=== PATIENT | male | born 2000 | race Caucasian/White ===

== ENCOUNTER 2023-06-21 23:19 | Emergency (ER) | payer MEDICAID ==
[2023-06-21 23:32] VITALS: O2SAT 100
[2023-06-21 23:48] LABS: BASOPHILS # (AUTO) 0.1 10^3/uL (0.0-0.1); BASOPHILS % (AUTO) 0.8 %; EOSINOPHILS # (AUTO) 0.5 10^3/uL (0.0-0.7); EOSINOPHILS % (AUTO) 6.3 %; HCT - HEMATOCRIT 43.8 % (42.0-52.0); HGB - HEMOGLOBIN 14.4 g/dL (14.0-18.0); LYMPHOCYTES % (AUTO) 38.1 %; MEAN CORPUSCULAR HEMOGLOBIN 30.3 pg (27.0-31.0); MEAN CORPUSCULAR HGB CONC 32.9 g/dL (32.0-36.0); MEAN PLATELET VOLUME 9.7 fL (7.4-11.4); MONOCYTES # (AUTO) 0.7 10^3/uL (0.0-1.0); MONOCYTES % (AUTO) 8.2 %; NEUTROPHILS # (AUTO) 3.7 10^3/uL (1.5-6.6); NEUTROPHILS % (AUTO) 46.5 %; PLT - PLATELET COUNT 270 10^3/uL (130-450); RED BLOOD COUNT 4.76 10^6/uL (4.70-6.10); RED CELL DISTRIBUTION WIDTH 13.1 % (12.0-15.0)
[2023-06-21 23:49] VITALS: BP 134/75
[2023-06-22 00:03] LABS: ALBUMIN 4.6 g/dL (3.2-5.5); ALBUMIN/GLOBULIN RATIO 2.6 (1.0-2.2); BILIRUBIN,TOTAL 0.4 mg/dL (0.2-1.0); CALCIUM 9.1 mg/dL (8.5-10.3); CREATININE 0.8 mg/dL (0.6-1.3); POTASSIUM 3.6 mmol/L (3.5-4.5); TOTAL PROTEIN 6.4 g/dL (6.4-8.9)
[2023-06-22 00:06] LABS: TROPONIN I HIGH SENSITIVITY 2.3 ng/L (2.3-19.7)
--- NOTE | 2023-06-22 00:46 | ED Physician Documentation ---
PD HPI CHEST PAIN - Stated complaint Stated Complaint: CHEST PX - Chief complaint Chief Complaint: Cardiac - History obtained from History obtained from: Patient - Additional information Additional information: Patient is a 23-year-old male presenting for evaluation of left-sided chest pain that has been present all day and feels like a sharp poking sensation. Nothing makes it better or worse. He denies feeling short of air. No recent fever, cough or congestion. No vomiting or diarrhea. Has not taken anything for this. Patient arrives to the emergency department with 7 solo cups, 6 of which are empty and stacked together and 1 with an shauna-colored liquid. When asked what is in the cup patient is very evasive about answering questions. He hesitantly denies drug or alcohol use. Review of Systems Constitutional: denies: Fever Cardiac: reports: Chest pain / pressure Respiratory: denies: Dyspnea GI: denies: Abdominal Pain, Vomiting PD PAST MEDICAL HISTORY - Past Medical History Past Medical History: No - Past Surgical History Past Surgical History: No - Allergies Allergies/Adverse Reactions: Allergies Allergy/AdvReac Type Severity Reaction Status Date / Time No Known Drug Allergies Allergy Verified 06/21/23 23:31 - Social History Does the pt smoke?: Yes Smoking Status: Current every day smoker Does the pt drink ETOH?: Yes - Immunizations Immunizations are current?: Yes PD ED PE NORMAL - General General: Alert and oriented X 3, No acute distress, Well developed/nourished - HEENT HEENT: Atraumatic, Moist mucous membranes, Pharynx benign - Neck Neck: Supple, no meningeal sign - Cardiac Cardiac: RRR, Strong equal pulses - Respiratory Respiratory: No respiratory distress, Clear bilaterally - Abdomen Abdomen: Soft, Non tender - Derm Derm: Warm and dry - Neuro Neuro: Normal speech Results - Vitals Vitals: Vital Signs - 24 hr 06/21/23 06/21/23 06/22/23 23:29 23:44 00:50 Temperature 37 C 36.6 C 37 C Heart Rate 78 82 83 Respiratory 20 17 20 Rate Blood Pressure 129/72 134/75 H 134/75 H O2 Saturation 100 100 100 Oxygen O2 Source Room air - EKG (time done) 7997 EKG releavant findings:: EKG personally interpreted by author of this note. Relevant findings are: Rate 80, normal sinus rhythm, no STEMI, no ST depressions - Labs Labs: Laboratory Tests 06/21/23 06/21/23 23:40 23:40 WBC 8.0 RBC 4.76 Hgb 14.4 Hct 43.8 MCV 92.0 MCH 30.3 MCHC 32.9 RDW 13.1 Plt Count 270 MPV 9.7 Neut # (Auto) 3.7 Lymph # (Auto) 3.0 [place] # (Auto) 0.7 Eos # (Auto) 0.5 Baso # (Auto) 0.1 Absolute Nucleated RBC 0.00 Nucleated RBC % 0.0 Sodium 141 Potassium 3.6 Chloride 105 Carbon Dioxide 26 Anion Gap 10.0 BUN 18 Creatinine 0.8 Estimated GFR (MDRD) 119 Glucose 112 H Calcium 9.1 Total Bilirubin 0.4 AST 14 ALT 11 Alkaline Phosphatase 79 Troponin I High Sens 2.3 Total Protein 6.4 Albumin 4.6 Globulin 1.8 L Albumin/Globulin Ratio 2.6 H Lipase 27 PD Medical Decision Making - ED course Complexity details: reviewed results, re-evaluated patient, d/w patient ED course: Patient is a 23-year-old male presenting for evaluation of chest pain that has been present all day long. Nothing making it better or worse. There is no radiation to the pain. PERC negative. No known risk factors for coronary artery disease. CBC, chemistries, troponin and chest x-ray were obtained. No significant findings including unremarkable chest x-ray. EKG is nonischemic.At this time I do not see signs of an emergent condition as an explanation for the patient's symptoms and have encouraged close outpatient follow-up if symptoms persist. Patient is advised on concerning symptoms to return for. Departure - Departure Disposition: 01 Home, Self Care Clinical Impression: Chest pain Condition: Stable Instructions: ED Chest Pain Atypical Unkn Cause Comments: Your lab testing tonight is reassuring and I do not see signs of a heart attack or any irregular rhythms with your heart. You can try ibuprofen or Tylenol for your symptoms to see if this helps. I would recommend close follow-up with a primary care provider if your symptoms are not improving. Return to the emergency department if your symptoms are getting worse. Forms: PCP List Discharge Date/Time: 06/22/23 00:51
--- NOTE | 2023-06-22 02:08 | XRAY Report ---
PROCEDURE: Chest 1 View X-Ray INDICATIONS: Chest pain TECHNIQUE: One view of the chest was acquired. COMPARISON: None. FINDINGS: Surgical changes and devices: None. Lungs and pleura: No pleural effusions or pneumothorax. Lungs are clear. Mediastinum: Mediastinal contours appear normal. Heart size is normal. Bones and chest wall: No suspicious bony lesions. Overlying soft tissues appear unremarkable. IMPRESSION: No acute cardiopulmonary process. Reviewed by: Francesco Flores MD on 06/22/2023 2:07 AM [facility] Approved by: Francesco Flores MD on 06/22/2023 2:07 AM [facility] Station ID: [id number]
== END 2023-06-22 00:51 | disposition home or self-care (01) ==
LOC: ED 23:19
DX: R07.9 Chest pain, unspecified (principal); F17.200 Nicotine dependence, unspecified, uncomplicated
CPT/HCPCS: 36415; 80053; 83690; 84484; 85025; 93005; 99283; 99284

== ENCOUNTER 2023-06-22 03:46 | Outpatient (CLI) | payer MEDICAID | END 2023-06-22 23:59 | disposition critical access hospital (66) | LOC: EMS 03:46 | DX: Z04.6 Encounter for general psychiatric examination, requested by authority (principal); F10.90 Alcohol use, unspecified, uncomplicated | CPT/HCPCS: A0425; A0429; A0999 ==

== ENCOUNTER 2023-06-22 03:53 | Emergency (ER) | payer MEDICAID ==
--- NOTE | 2023-06-22 04:09 | ED Physician Documentation ---
PD HPI MHE - Stated complaint Stated Complaint: WANTS DETOX - Chief complaint Chief Complaint: MHE - History obtained from History obtained from: Patient, EMS, Police - Additional information Additional information: Patient is a 23-year-old male presenting to the emergency department for requesting detox from alcohol. Patient was seen earlier this evening in the emergency department for chest pain. At that time he had a negative work-up including EKG and troponin without signs of acute ischemia. He did have several solo cups with him that were empty and 1 with some liquid in it that he would n ot identify. Per police and EMS he was found outside running around naked near [facility] and drinking from 1 of those solo cups.When I asked the patient how much he drinks he is still very evasive with questions, often smirking and Giving vague answers. The patient is minimally cooperative with history taking. When I ask again about his chest pain he states that it is emotional pain. He denies SI or HI. He denies drug use. He has a monitoring device on his right ankle. Review of Systems Constitutional: denies: Fever Respiratory: denies: Dyspnea GI: denies: Vomiting Psychiatric: denies: Suicidal, Homicidal PD PAST MEDICAL HISTORY - Past Surgical History Past Surgical History: No - Allergies Allergies/Adverse Reactions: Allergies Allergy/AdvReac Type Severity Reaction Status Date / Time No Known Drug Allergies Allergy Verified 06/21/23 23:31 - Social History Does the pt smoke?: Yes Smoking Status: Current every day smoker Does the pt drink ETOH?: Yes - Immunizations Immunizations are current?: Yes PD ED PE NORMAL - General General: Alert and oriented X 3, No acute distress, Well developed/nourished - HEENT HEENT: Atraumatic, PERRL, Moist mucous membranes, Pharynx benign - Neck Neck: Supple, no meningeal sign - Cardiac Cardiac: RRR - Respiratory Respiratory: No respiratory distress, Clear bilaterally - Abdomen Abdomen: Soft, Non tender, Non distended - Derm Derm: Warm and dry - Neuro Neuro: Normal speech Results - Vitals Vitals: Vital Signs - 24 hr 06/22/23 06/22/23 06/22/23 03:57 04:02 06:33 Temperature 37 C 36.9 C 36.8 C Heart Rate 86 84 79 Respiratory 17 20 20 Rate Blood Pressure 134/78 H 119/69 127/74 O2 Saturation 100 94 100 Oxygen O2 Source Room air - Labs Labs: Laboratory Tests 06/22/23 06/22/23 06/22/23 04:15 04:15 05:00 WBC 7.9 RBC 4.59 L Hgb 13.7 L Hct 42.7 MCV 93.0 MCH 29.8 MCHC 32.1 RDW 13.1 Plt Count 277 MPV 9.9 Neut # (Auto) 2.9 Lymph # (Auto) 3.8 H Hale # (Auto) 0.5 Eos # (Auto) 0.6 Baso # (Auto) 0.1 Absolute Nucleated RBC 0.00 Nucleated RBC % 0.0 Sodium 142 Potassium 3.9 Chloride 105 Carbon Dioxide 29 Anion Gap 8.0 BUN 19 Creatinine 1.0 Estimated GFR (MDRD) 92 Glucose 94 Calcium 9.0 Magnesium 1.9 Total Bilirubin 0.4 AST 13 ALT 11 Alkaline Phosphatase 74 Total Creatine Kinase 82 Total Protein 6.1 L Albumin 4.4 Globulin 1.7 L Albumin/Globulin Ratio 2.6 H Lipase 30 TSH 2.14 Urine Color YELLOW Urine Clarity CLEAR Urine pH 6.0 Ur Specific [place] >=1.030 H Urine Protein TRACE Urine Glucose (UA) NEGATIVE Urine Ketones NEGATIVE Urine Occult Blood NEGATIVE Urine Nitrite NEGATIVE Urine Bilirubin NEGATIVE Urine Urobilinogen 0.2 (NORMAL) Ur Leukocyte Esterase NEGATIVE Ur Microscopic Review NOT INDICATED Urine Culture Comments NOT INDICATED Salicylates < 1.5 Urine Opiates Screen NEGATIVE Ur Oxycodone Screen NEGATIVE Urine Methadone Screen NEGATIVE Ur Propoxyphene Screen NEGATIVE Acetaminophen < 0.1 Ur Barbiturates Screen NEGATIVE Ur Tricyclics Screen NEGATIVE Ur Phencyclidine Scrn NEGATIVE Ur Amphetamine Screen NEGATIVE U Methamphetamines Scrn NEGATIVE U Benzodiazepines Scrn NEGATIVE Urine Cocaine Screen NEGATIVE U Cannabinoids Screen NEGATIVE Ethyl Alcohol 134.2 PD Medical Decision Making - ED course Complexity details: reviewed results, re-evaluated patient, d/w patient ED course: Patient is a 23-year-old male presenting for requesting detox for alcohol. He is not forthcoming with how much he has been drinking or what he has been drinking recently. He was actually seen in our emergency department earlier tonight for chest pain and now when asked about it states it is emotional pain. He denies feeling suicidal. He denies drug use. He was brought in voluntarily by EMS. Although evasive with answering questions he is mostly cooperative. Mental health screening labs were obtained and reviewed and without any significant findings. Alcohol level is 134 but patient is speaking clearly and ambulating with a steady gait on his own. Patient has been cleared from a medical standpoint and spoke to [facility]. Social work consult has also been placed. Patient to be signed out to oncoming provider at shift change. 0525 - Patient's labs reviewed without significant findings. He has been medically cleared. EtOH level is 134. Patient is ambulatory here with clear speech. I did have another conversation with the patient to try and elicit more information and he states that he is from the [facility] [place] He states that he went to detox a year ago and had been doing well up until recent weeks. He denies feeling suicidal. He does not give an answer as to why he has been drinking again. He is interested in getting help however. He does not appear to be having any withdrawal symptoms currently. 0640 - Patient has spoken to [facility] and we have faxed over information for them. We are waiting to see if they have availability for the patient. A social work consult has also been placed. Patient may also just benefit from outpatient resources. He again does not appear to be having withdrawal symptoms at this time. Departure - Departure Clinical Impression: Alcohol abuse Condition: Stable Forms: PCP List
[2023-06-22 04:24] LABS: BASOPHILS # (AUTO) 0.1 10^3/uL (0.0-0.1); BASOPHILS % (AUTO) 0.8 %; EOSINOPHILS # (AUTO) 0.6 10^3/uL (0.0-0.7); HCT - HEMATOCRIT 42.7 % (42.0-52.0); HGB - HEMOGLOBIN 13.7 g/dL (14.0-18.0); LYMPHOCYTES # (AUTO) 3.8 10^3/uL (1.5-3.5); LYMPHOCYTES % (AUTO) 48.5 %; MEAN CORPUSCULAR HEMOGLOBIN 29.8 pg (27.0-31.0); MEAN CORPUSCULAR HGB CONC 32.1 g/dL (32.0-36.0); MEAN PLATELET VOLUME 9.9 fL (7.4-11.4); MONOCYTES # (AUTO) 0.5 10^3/uL (0.0-1.0); MONOCYTES % (AUTO) 6.7 %; NEUTROPHILS # (AUTO) 2.9 10^3/uL (1.5-6.6); NEUTROPHILS % (AUTO) 36.9 %; PLT - PLATELET COUNT 277 10^3/uL (130-450); RED BLOOD COUNT 4.59 10^6/uL (4.70-6.10); RED CELL DISTRIBUTION WIDTH 13.1 % (12.0-15.0); WHITE BLOOD COUNT 7.9 x10^3/uL (4.8-10.8)
[2023-06-22 04:42] LABS: ALBUMIN 4.4 g/dL (3.2-5.5); ALBUMIN/GLOBULIN RATIO 2.6 (1.0-2.2); ALKALINE PHOSPHATASE 74 IU/L (42-121); ALT ALANINE AMINOTRANSFERASE 11 IU/L (10-60); AST ASPARTATE AMINOTRANSFERASE 13 IU/L (10-42); BILIRUBIN,TOTAL 0.4 mg/dL (0.2-1.0); BUN - BLOOD UREA NITROGEN 19 mg/dL (6-20); CARBON DIOXIDE - CO2 29 mmol/L (21-32); CHLORIDE 105 mmol/L (101-111); CK- CREATINE KINASE 82 IU/L (30-223); ETOH - ETHANOL 134.2 mg/dL; GFR - MDRD 92 (>89); GLUCOSE 94 mg/dL (74-104); LIPASE 30 U/L (11-82); MAGNESIUM 1.9 mg/dL (1.7-2.3); POTASSIUM 3.9 mmol/L (3.5-4.5); SODIUM 142 mmol/L (135-145); TOTAL PROTEIN 6.1 g/dL (6.4-8.9)
[2023-06-22 04:44] LABS: SALICYLATE < 1.5 mg/dL
[2023-06-22 04:45] LABS: ACETAMINOPHEN < 0.1 ug/mL
[2023-06-22 04:52] LABS: THYROID STIMULATING HORMONE 2.14 uIU/mL (0.34-5.60)
[2023-06-22 05:33] LABS: BILIRUBIN,URINE NEGATIVE (NEGATIVE); GLUCOSE, URINE (UA) NEGATIVE (NEGATIVE); KETONES,URINE (UA) NEGATIVE (NEGATIVE); LEUKOCYTE ESTERASE, URINE NEGATIVE (NEGATIVE); MUDS CUTOFF CONCENTRATIONS CUTOFF CONC BELOW:; NITRITE,URINE NEGATIVE (NEGATIVE); OCCULT BLOOD,URINE NEGATIVE (NEGATIVE); PROTEIN,URINE TRACE mg/dL (NEGATIVE); UROBILINOGEN,URINE 0.2 (NORMAL) E.U./dL (NORMAL)
[2023-06-22 05:35] LABS: CLARITY,URINE CLEAR (CLEAR)
[2023-06-22 05:44] LABS: AMPHETAMINE SCREEN,URINE NEGATIVE (NEGATIVE); BARBITURATE SCREEN,UR NEGATIVE (NEGATIVE); BENZODIAZEPINES SCREEN, URINE NEGATIVE (NEGATIVE); COCAINE SCREEN URINE NEGATIVE (NEGATIVE); METHADONE SCREEN, URINE NEGATIVE (NEGATIVE); METHAMPHETAMINES SCREEN, URINE NEGATIVE (NEGATIVE); OPIATE SCREEN, URINE NEGATIVE (NEGATIVE); OXYCODONE SCREEN, URINE NEGATIVE (NEGATIVE); PROPOXYPHENE SCREEN, URINE NEGATIVE (NEGATIVE); THC CANNABINOID SCREEN, URINE NEGATIVE (NEGATIVE); TRICYCLIC ANTIDEPRESSANT,URINE NEGATIVE (NEGATIVE)
[2023-06-22 06:36] VITALS: O2SAT 100
[2023-06-22] MEDS ORDERED: LORazepam 1 MG TABLET PO STA (08:06)
[2023-06-22] MEDS ORDERED: PHENobarbitaL 32.4 MG TABLET PO STA (08:06)
--- NOTE | 2023-06-22 08:09 | ED Physician Documentation ---
ED Addendum - Addendum Addendum: 06/22/23 08:07 The patient was conversant and in no apparent distress. Asked if he has started to feel some withdrawal symptoms. He states he was feeling slightly shaky. Heart rate seemed mildly elevated otherwise no tremor noted. He is not nauseous. However will be easier to preempt the withdrawal symptoms and I would anticipate his blood alcohol level being at that point now. I will start with some oral medication of phenobarbital and lorazepam. He did talk with the 2 and they are excepting him but he cannot arrive until 1. He can either remain here with medic occasions and such or discharge. I left to the patient. It would be 4 hours from now that he would leave here to arrive at that facility. He will need to provide his own ride. You look at friends as a possibility although the bus route will go right by there. Social work can assist.
[2023-06-22 11:58] VITALS: BP 123/76
== END 2023-06-22 11:54 | disposition home or self-care (01) ==
LOC: EDUNIT# → ED 03:53
DX: F10.10 Alcohol abuse, uncomplicated (principal); Y90.6 Blood alcohol level of 120-199 mg/100 ml; F17.200 Nicotine dependence, unspecified, uncomplicated
CPT/HCPCS: 36415; 80053; 80306; 80307; 80320; 80329; 81003; 82550; 83690; 83735; 84443; 85025; 99283; A9270; J8499; 81001; 87086

== ENCOUNTER 2023-06-24 16:08 | Emergency (ER) | payer MEDICAID ==
[2023-06-24 16:37] VITALS: BP 135/71; O2SAT 100
== END 2023-06-24 17:10 | disposition left against medical advice (07) ==
LOC: ED 16:08
DX: Z53.21 Procedure and treatment not carried out due to patient leaving prior to being seen by health care provider (principal)

== ENCOUNTER 2023-06-24 20:24 | Emergency (ER) | payer MEDICAID ==
[2023-06-24 20:35] VITALS: BP 130/88; O2SAT 98
--- NOTE | 2023-06-24 20:46 | ED Physician Documentation ---
History of Present Illness - Stated complaint Stated Complaint: MHE - Chief complaint Chief Complaint: MHE - History obtained from History obtained from: Patient - Additonal information Additional information: 23yM with 4 ED visits in the past 2 days p/w full body aches, hiccups and alcohol use. patient is poor historian but states he may have schizophrenia. denies SI/HI but states he sometimes may have hallucinations. unable to state his medications or if he is prescribed anything. states he did not go to [facility] after being referred there on previous ED visit, but that he is aware of that resource. Review of Systems Constitutional: denies: Fever Cardiac: denies: Chest pain / pressure Respiratory: denies: Dyspnea GI: denies: Abdominal Pain, Vomiting, Diarrhea Musculoskeletal: reports: Other (body aches) PD PAST MEDICAL HISTORY - Past Medical History Cardiovascular: None Respiratory: None Neuro: None Endocrine/Autoimmune: None GI: None : None HEENT: None Psych: Anxiety, Schizophrenia Musculoskeletal: None Derm: None - Past Surgical History Past Surgical History: No - Present Medications Home Medications: Ambulatory Orders Medication Instructions Recorded Confirmed Famotidine [Pepcid] 20 mg PO BID 06/22/23 06/22/23 Naltrexone HCl 50 mg PO DAILY 06/22/23 06/22/23 - Allergies Allergies/Adverse Reactions: Allergies Allergy/AdvReac Type Severity Reaction Status Date / Time No Known Drug Allergies Allergy Verified 06/24/23 20:27 - Social History Does the pt smoke?: Yes Smoking Status: Current every day smoker Does the pt drink ETOH?: Yes - Immunizations Immunizations are current?: Yes PD ED PE NORMAL - Vitals Vital signs reviewed: Yes - General General: Alert and oriented X 3, No acute distress, Well developed/nourished - HEENT HEENT: Atraumatic, PERRL, EOMI, Moist mucous membranes, Pharynx benign - Neck Neck: Supple, no meningeal sign - Derm Derm: Normal color, Warm and dry - Neuro Neuro: Alert and oriented X 3, No motor deficit, No sensory deficit - Psych Psych: Other (diminished eye contact) Results - Vitals Vitals: Vital Signs - 24 hr 06/24/23 20:27 Temperature 36.5 C Heart Rate 90 Respiratory 16 Rate Blood Pressure 130/88 H O2 Saturation 98 Oxygen O2 Source Room air PD Medical Decision Making - ED course ED course: 23yM presents to the ED after drinking alcohol today, reporting he has hiccups, body aches and just doesn't feel good. denies SI/HI. states he has occasional hallucinations. ambulatory with steady gait. linear thought process and he does not appear to be responding to internal stimuli despite saying "schizophrenia" is bothering him. advised outpatient follow up with [facility] addiction treatment facility. resources provided again. Departure - Departure Disposition: 01 Home, Self Care Clinical Impression: Alcohol abuse Condition: Stable Instructions: ED Alcohol Abuse Comments: You were seen in the emergency department for alcohol use disorder. Please follow-up with [facility] and return to the emergency department if you have any new or worsening symptoms or other concerns. [facility] [address] [place] [address]
== END 2023-06-24 20:47 | disposition home or self-care (01) ==
LOC: ED 20:24
DX: F10.10 Alcohol abuse, uncomplicated (principal); F17.200 Nicotine dependence, unspecified, uncomplicated
CPT/HCPCS: 99282

== ENCOUNTER 2023-06-28 21:11 | Emergency (ER) | payer MEDICAID ==
[2023-06-28 21:23] VITALS: BP 124/71; O2SAT 99
--- NOTE | 2023-06-28 21:25 | ED Physician Documentation ---
PD HPI MHE - Stated complaint Stated Complaint: MHE - Chief complaint Chief Complaint: MHE - History obtained from History obtained from: Other ([facility] staff at bedside) - Additional information Additional information: HPI is from another individual who is at bedside with patient; this person works at [facility] and brought patient to ED. Patient provides almost no useful/reliable information to HPI/ROS; answers are vague, ambivalent, unsure, and sometime responses are extraneous to the question(s) asked. Patient was evaluated in this ED 06/21, 06/22, and 06/24; while there were some physical c/o on some of these visits (with unremarkable test results), ED MD charts (reviewed by me at this time) indicate a mental health-related basis for these previous visits. Patient had been staying at [facility] until four days ago. He returned today requesting readmission to [facility]. The accompanying staff member from [facility] brought patient to ED as he does not think patient would be appropriate to return to [facility] based on recent behaviors patient has been exhibiting. For example, patient was brought to this ED 06/22/23 when [facility] staff called 911 having found patient sitting on a couch in a common area, naked and acting bizarre. At that time, ED notes indicate he was medically cleared for detox from alcohol at [facility]. Patient returned 06/24/23 to this ED; ED MD note from that visit indicates patient was saying he never went to [facility]. Today (at this time, on this HPI), patient provides vague and, at times, conflicting answers as to whether he actually reported to [facility]. [facility] business banking representative says patient has h/o schizophrenia and is worried patient is having psychotic break and needs help. Patient cannot confirm this diagnosis for me and does not provide information regarding previous medications he has been on. He denies SI, however, when I ask this specifically. [facility] staff also tells me patient has been c/o AH tonight. Patient again does not provide a clear answer when I ask him about this . When I ask patient about alcohol use he says "I try to stay away from the drugs and alcohol." He repeats this answer when I re-ask if he has been drinking today/tonight. Review of Systems Psychiatric: denies: Suicidal (as noted in HPI, this is one of the only questions to which patient provides a definitive answer) PD PAST MEDICAL HISTORY - Past Medical History Past Medical History: Yes Cardiovascular: None Respiratory: None Neuro: None Endocrine/Autoimmune: None GI: None : None HEENT: None Psych: Anxiety, Schizophrenia Musculoskeletal: None Derm: None - Past Surgical History Past Surgical History: No - Present Medications Home Medications: Ambulatory Orders Medication Instructions Recorded Confirmed Famotidine [Pepcid] 20 mg PO BID 06/22/23 06/22/23 Naltrexone HCl 50 mg PO DAILY 06/22/23 06/22/23 - Allergies Allergies/Adverse Reactions: Allergies Allergy/AdvReac Type Severity Reaction Status Date / Time No Known Drug Allergies Allergy Verified 06/28/23 21:17 - Social History Does the pt smoke?: Yes Smoking Status: Current every day smoker Does the pt drink ETOH?: Yes - Immunizations Immunizations are current?: Yes PD ED PE NORMAL - Vitals Vital signs reviewed: Yes - General General: No acute distress, Well developed/nourished, Other (awake, alert, poor eye contact, mumbling answers at times. demeanor is that of extreme indifference and disinterest. ) - HEENT HEENT: PERRL - Cardiac Cardiac: RRR, No murmur - Respiratory Respiratory: No respiratory distress, Clear bilaterally - Neuro Eye Opening: Spontaneous Motor: Obeys Commands Verbal: Oriented GCS Score: 15 PD ED PE EXPANDED - Psych Psych: Poor eye contact, Other (seems entirely disinterested in participating in verbal interaction with examining physician) Results - Vitals Vitals: Vital Signs - 24 hr 06/28/23 06/28/23 21:17 21:22 Temperature 36.5 C Heart Rate 90 Respiratory 16 18 Rate Blood Pressure 124/71 O2 Saturation 99 Oxygen O2 Source Room air - Labs Labs: Laboratory Tests 06/28/23 06/28/23 06/28/23 22:15 22:18 22:27 WBC RBC Hgb Hct MCV MCH MCHC RDW Plt Count MPV Neut # (Auto) Lymph # (Auto) Kinney # (Auto) Eos # (Auto) Baso # (Auto) Absolute Nucleated RBC Nucleated RBC % Sodium Potassium Chloride Carbon Dioxide Anion Gap BUN Creatinine Estimated GFR (MDRD) Glucose Calcium Magnesium Total Bilirubin AST ALT Alkaline Phosphatase Total Creatine Kinase Total Protein Albumin Globulin Albumin/Globulin Ratio Lipase TSH Urine Color YELLOW Urine Clarity CLEAR Urine pH 7.5 Ur Specific [place] 1.015 Urine Protein NEGATIVE Urine Glucose (UA) NEGATIVE Urine Ketones NEGATIVE Urine Occult Blood NEGATIVE Urine Nitrite NEGATIVE Urine Bilirubin NEGATIVE Urine Urobilinogen 2 H Ur Leukocyte Esterase NEGATIVE Ur Microscopic Review NOT INDICATED Urine Culture Comments NOT INDICATED Salicylates Urine Opiates Screen NEGATIVE Ur Buprenorphine Scrn NEGATIVE Ur Oxycodone Screen NEGATIVE Urine Methadone Screen NEGATIVE Acetaminophen Ur Barbiturates Screen POSITIVE H Ur Tricyclics Screen NEGATIVE Ur Phencyclidine Scrn NEGATIVE Ur Amphetamine Screen NEGATIVE U Methamphetamines Scrn NEGATIVE U Benzodiazepines Scrn NEGATIVE Urine Cocaine Screen NEGATIVE U Cannabinoids Screen NEGATIVE Ur Drug Screen Comment CUTOFF CONC BELOW: Ethyl Alcohol SARS-CoV-2 (PCR) NOT DETECTED 06/28/23 06/28/23 22:33 22:33 WBC 5.6 RBC 4.76 Hgb 14.3 Hct 43.2 MCV 90.8 MCH 30.0 MCHC 33.1 RDW 13.1 Plt Count 296 MPV 9.3 Neut # (Auto) 2.2 Lymph # (Auto) 2.6 Kinney # (Auto) 0.5 Eos # (Auto) 0.3 Baso # (Auto) 0.0 Absolute Nucleated RBC 0.00 Nucleated RBC % 0.0 Sodium 140 Potassium 4.3 Chloride 103 Carbon Dioxide 30 Anion Gap 7.0 BUN 10 Creatinine 0.8 Estimated GFR (MDRD) 119 Glucose 93 Calcium 9.3 Magnesium 2.0 Total Bilirubin 0.5 AST 17 ALT 16 Alkaline Phosphatase 75 Total Creatine Kinase 130 Total Protein 6.9 Albumin 4.5 Globulin 2.4 Albumin/Globulin Ratio 1.9 Lipase 31 TSH 2.28 Urine Color Urine Clarity Urine pH Ur Specific [place] Urine Protein Urine Glucose (UA) Urine Ketones Urine Occult Blood Urine Nitrite Urine Bilirubin Urine Urobilinogen Ur Leukocyte Esterase Ur Microscopic Review Urine Culture Comments Salicylates < 1.5 Urine Opiates Screen Ur Buprenorphine Scrn Ur Oxycodone Screen Urine Methadone Screen Acetaminophen < 0.1 Ur Barbiturates Screen Ur Tricyclics Screen Ur Phencyclidine Scrn Ur Amphetamine Screen U Methamphetamines Scrn U Benzodiazepines Scrn Urine Cocaine Screen U Cannabinoids Screen Ur Drug Screen Comment Ethyl Alcohol 163.2 SARS-CoV-2 (PCR) PD Medical Decision Making - ED course Complexity details: reviewed old records, reviewed results, considered differe nadia, d/w patient ED course: Telepsychiatric services are consulted after MHE-related order set is undertaken and completed. UDS positive for barbiturates only. Serum ethanol level 0.163. Normal CBC, ER abdominal panel, UA (except isolated finding of urobilinogen). Unfortunately, telepsych services refused to evaluate patient until serum ethanol level falls below 0.08. It was subsequently brought to my attention that staff from [facility] could not stay any longer in ED and they express concern that patient will refuse to stay unless they stay, as well. At this time, I do not information sufficient to reach nor cross the threshold into holding patient in ED against his will. I do feel that telepsychiatric evaluation would be the logical next step, as they would be most suited in determining whether patient's current and recent behaviors are c/w psychotic/schizophrenic break as well as making medication recommendations and attempting to further ascertain whether patient would benefit from inpatient treatment. [facility] staff eventually left the ED when patient stated he was agreeable to stay in ED. I calculated redraw of serum ethanol should be done at approximately 02:30. At approximately 01:45, patient insisted on leaving ED. He was not loud, violent, nor argumentative but was firm on this decision and was not interested in any discussion regarding any other options such as waiting for telepsychiatric consult or even a one-time dose of TL zyprexa prior to d/c. He signed AMA form prior to leaving and was instructed by RN to return at any time he wishes to for reevaluation. Departure - Departure Disposition: 07 Against Medical Advice Clinical Impression: Alcoholic intoxication Qualifiers: Complication of substance-induced condition: uncomplicated Qualified Code(s): F10.920 - Alcohol use, unspecified with intoxication, uncomplicated Condition: Stable Forms: PCP List Discharge Date/Time: 06/29/23 02:06
[2023-06-28 22:22] LABS: BILIRUBIN,URINE NEGATIVE (NEGATIVE); GLUCOSE, URINE (UA) NEGATIVE (NEGATIVE); KETONES,URINE (UA) NEGATIVE (NEGATIVE); LEUKOCYTE ESTERASE, URINE NEGATIVE (NEGATIVE); NITRITE,URINE NEGATIVE (NEGATIVE); OCCULT BLOOD,URINE NEGATIVE (NEGATIVE); PH,URINE 7.5 PH (5.0-7.5); PROTEIN,URINE NEGATIVE (NEGATIVE); UROBILINOGEN,URINE 2 E.U./dL (NORMAL)
[2023-06-28 22:23] LABS: CLARITY,URINE CLEAR (CLEAR)
[2023-06-28 22:35] LABS: COCAINE SCREEN URINE NEGATIVE (NEGATIVE); METHAMPHETAMINES SCREEN, URINE NEGATIVE (NEGATIVE); THC CANNABINOID SCREEN, URINE NEGATIVE (NEGATIVE)
[2023-06-28 22:36] LABS: AMPHETAMINE SCREEN,URINE NEGATIVE (NEGATIVE); BARBITURATE SCREEN,UR POSITIVE (NEGATIVE); BENZODIAZEPINES SCREEN, URINE NEGATIVE (NEGATIVE); BUPRENORPHINE SCREEN, URINE NEGATIVE (NEGATIVE); METHADONE SCREEN, URINE NEGATIVE (NEGATIVE); OPIATE SCREEN, URINE NEGATIVE (NEGATIVE); OXYCODONE SCREEN, URINE NEGATIVE (NEGATIVE); TRICYCLIC ANTIDEPRESSANT,URINE NEGATIVE (NEGATIVE)
[2023-06-28 22:45] LABS: BASOPHILS % (AUTO) 0.7 %; EOSINOPHILS # (AUTO) 0.3 10^3/uL (0.0-0.7); EOSINOPHILS % (AUTO) 4.5 %; HCT - HEMATOCRIT 43.2 % (42.0-52.0); HGB - HEMOGLOBIN 14.3 g/dL (14.0-18.0); LYMPHOCYTES # (AUTO) 2.6 10^3/uL (1.5-3.5); LYMPHOCYTES % (AUTO) 47.1 %; MEAN CORPUSCULAR HGB CONC 33.1 g/dL (32.0-36.0); MEAN CORPUSCULAR VOLUME 90.8 fL (80.0-94.0); MEAN PLATELET VOLUME 9.3 fL (7.4-11.4); MONOCYTES # (AUTO) 0.5 10^3/uL (0.0-1.0); MONOCYTES % (AUTO) 9.1 %; NEUTROPHILS # (AUTO) 2.2 10^3/uL (1.5-6.6); NEUTROPHILS % (AUTO) 38.4 %; PLT - PLATELET COUNT 296 10^3/uL (130-450); RED BLOOD COUNT 4.76 10^6/uL (4.70-6.10); RED CELL DISTRIBUTION WIDTH 13.1 % (12.0-15.0); WHITE BLOOD COUNT 5.6 x10^3/uL (4.8-10.8)
[2023-06-28 23:05] LABS: ALBUMIN 4.5 g/dL (3.2-5.5); ALBUMIN/GLOBULIN RATIO 1.9 (1.0-2.2); ALKALINE PHOSPHATASE 75 IU/L (42-121); ALT ALANINE AMINOTRANSFERASE 16 IU/L (10-60); AST ASPARTATE AMINOTRANSFERASE 17 IU/L (10-42); BILIRUBIN,TOTAL 0.5 mg/dL (0.2-1.0); BUN - BLOOD UREA NITROGEN 10 mg/dL (6-20); CALCIUM 9.3 mg/dL (8.5-10.3); CARBON DIOXIDE - CO2 30 mmol/L (21-32); CHLORIDE 103 mmol/L (101-111); CK- CREATINE KINASE 130 IU/L (30-223); CREATININE 0.8 mg/dL (0.6-1.3); ETOH - ETHANOL 163.2 mg/dL; GFR - MDRD 119 (>89); GLUCOSE 93 mg/dL (74-104); LIPASE 31 U/L (11-82); POTASSIUM 4.3 mmol/L (3.5-4.5); SODIUM 140 mmol/L (135-145); TOTAL PROTEIN 6.9 g/dL (6.4-8.9)
[2023-06-28 23:10] LABS: ACETAMINOPHEN < 0.1 ug/mL
[2023-06-28 23:14] LABS: THYROID STIMULATING HORMONE 2.28 uIU/mL (0.34-5.60)
[2023-06-28 23:40] LABS: SALICYLATE < 1.5 mg/dL
== END 2023-06-29 02:06 | disposition left against medical advice (07) ==
LOC: ED 21:11
DX: F10.920 Alcohol use, unspecified with intoxication, uncomplicated (principal); F20.9 Schizophrenia, unspecified; F17.200 Nicotine dependence, unspecified, uncomplicated
CPT/HCPCS: 36415; 80053; 80306; 80307; 80320; 80329; 81001; 81003; 82550; 83690; 83735; 84443; 85025; 87086; 87635; 99283

== ENCOUNTER 2023-06-29 10:30 | Emergency (ER) | payer MEDICAID ==
[2023-06-29 11:05] VITALS: BP 121/79; O2SAT 99
--- NOTE | 2023-06-29 11:09 | ED Physician Documentation ---
History of Present Illness - Stated complaint Stated Complaint: PAIN,DELUSIONAL - Chief complaint Chief Complaint: MHE - History obtained from History obtained from: Patient - History of Present Illness Timing: Today Pain level max: 0 Pain level now: 0 - Additonal information Additional information: 23-year-old male presents to the emergency department stating that he has a problem with "alcohol". He states that he was staying at [facility] but was kicked out. He states that he went to detox on 06 23 at [facility], but left. Patient states he is upset with himself that he left detox. He denies being suicidal or homicidal. Denies any other drug use. Was seen here last night and decided to leave. He states he drank again this morning so came back for help with alcoholism. This is his sixth emergency department visit in the last week. Patient left the emergency department at approximately 2 AM this morning. Review of Systems Constitutional: denies: Fever, Chills GI: denies: Vomiting, Diarrhea Skin: denies: Rash Musculoskeletal: denies: Neck pain, Back pain Neurologic: denies: Headache Psychiatric: denies: Suicidal, Homicidal, Hallucinations PD PAST MEDICAL HISTORY - Past Medical History Past Medical History: Yes Cardiovascular: None Respiratory: None Neuro: None Endocrine/Autoimmune: None GI: None : None HEENT: None Psych: Anxiety, Schizophrenia Musculoskeletal: None Derm: None - Past Surgical History Past Surgical History: No - Present Medications Home Medications: Ambulatory Orders Medication Instructions Recorded Confirmed Famotidine [Pepcid] 20 mg PO BID 06/22/23 06/22/23 Naltrexone HCl 50 mg PO DAILY 06/22/23 06/22/23 - Allergies Allergies/Adverse Reactions: Allergies Allergy/AdvReac Type Severity Reaction Status Date / Time No Known Drug Allergies Allergy Verified 06/28/23 21:17 - Social History Does the pt smoke?: Yes Smoking Status: Current every day smoker Does the pt drink ETOH?: Yes - Immunizations Immunizations are current?: Yes PD ED PE NORMAL - Vitals Vital signs reviewed: Yes - General General: Alert and oriented X 3, No acute distress - HEENT HEENT: PERRL, Moist mucous membranes - Neck Neck: Supple, no meningeal sign - Cardiac Cardiac: RRR, Strong equal pulses - Respiratory Respiratory: No respiratory distress, Clear bilaterally - Abdomen Abdomen: Soft, Non tender, Non distended - Derm Derm: Warm and dry - Extremities Extremities: No edema, No calf tenderness / cord - Neuro Neuro: Alert and oriented X 3, steamfitter 2-12 intact, No motor deficit, No sensory deficit, Normal speech - Psych Psych: Normal mood, Normal affect Results - Vitals Vitals: Vital Signs - 24 hr 06/29/23 10:35 Temperature 36 C L Heart Rate 76 Respiratory 16 Rate Blood Pressure 121/79 O2 Saturation 99 Oxygen O2 Source Room air - Labs Labs: Laboratory Tests 06/29/23 11:16 Ethyl Alcohol 199.9 PD Medical Decision Making - ED course Complexity details: reviewed results, re-evaluated patient, considered differential, d/w patient, d/w erp consultant ED course: Patient initially stated that he wanted to go to detox, but when he spoke with social work he stated that he was not ready to actually quit drinking and wants to go back to [place]. He denies being suicidal or homicidal. He states that he has a ride to get back home to [place]. We will discharge him with information about detox and rehab facilities when he is ready. No emergency medical condition at this time. Ambulating with a steady gait. Clear speech. Patient counseled regarding signs and symptoms for which I believe and urgent re-evaluation would be necessary. Patient with good understanding of and agreement to plan and is comfortable going home at this time This document was made in part using voice recognition software. While efforts are made to proofread this document, sound alike and grammatical errors may occur. Departure - Departure Disposition: 01 Home, Self Care Clinical Impression: Alcohol abuse Condition: Good Instructions: ED Alcohol Abuse Follow-Up: your,doctor as needed [Other] Comments: Please follow-up with your doctor for further care. Please return if you worsen. Contact: [facility] [address] [place] [phone] Fax: Forms: PCP List Discharge Date/Time: 06/29/23 13:33
== END 2023-06-29 13:33 | disposition home or self-care (01) ==
LOC: ED 10:30
DX: F10.10 Alcohol abuse, uncomplicated (principal); Y90.6 Blood alcohol level of 120-199 mg/100 ml; F20.9 Schizophrenia, unspecified; F41.9 Anxiety disorder, unspecified; F17.200 Nicotine dependence, unspecified, uncomplicated; Z79.899 Other long term (current) drug therapy
CPT/HCPCS: 36415; 80320; 99283